=== PATIENT | male | born 1955 | race Caucasian/White ===

== ENCOUNTER 2016-05-21 16:08 | Emergency (ER) | payer SELFPAY ==
[~2016-05-21] VITALS: Wt 93.5 kg
== END 2016-05-21 19:38 | disposition left against medical advice (07) ==
LOC: FTE 16:08
DX: Z53.21 Procedure and treatment not carried out due to patient leaving prior to being seen by health care provider (principal)

== ENCOUNTER 2016-05-26 06:46 | Emergency (ER) | payer OTHER ==
[~2016-05-26] VITALS: Ht 177.8 cm; Wt 93.0 kg
[2016-05-26 06:49] VITALS: Ht 177.8 cm; Wt 93.0 kg
[2016-05-26 07:17] LABS: URINE BLOOD (Dip) POC Trace-intact (NEGATIVE)
--- NOTE | 2016-05-26 07:50 | ERD ---
ER Documentation Chief Complaint Date/Time DATE: 05/26/16 TIME: 07:41 Chief Complaint painful urination HPI This is a 61-year-old male who presents to emergency department today stating that he was sent to the emergency room by his primary care doctor for a circumcision as he has phimosis. Denies any fevers or chills or inability to urinate. ROS All systems reviewed and are negative except as per history of present illness. Allergies Allergies: Coded Allergies: No Known Allergy (Unverified , 05/26/16) PMhx/Soc Medical and Surgical Hx: pt denies Medical Hx, pt denies Surgical Hx History of Surgery: Yes (l. knee) Anesthesia Reaction: No Hx Neurological Disorder: No Hx Respiratory Disorders: No Hx Cardiac Disorders: No Hx Psychiatric Problems: No Hx Miscellaneous Medical Probl: No Hx Alcohol Use: No Hx Substance Use: No Hx Tobacco Use: No Smoking Status: Never smoker Physical Exam Vitals Vital Signs Date Time Temp Pulse Resp B/P Pulse Ox O2 Delivery O2 Flow Rate FiO2 05/26/16 06:49 98.2 80 19 144/67 80 Physical Exam Const: No acute distress Head: Atraumatic Eyes: Normal Conjunctiva ENT: Normal External Ears, Nose and Mouth. Neck: Full range of motion..~ No meningismus. Resp: Clear to auscultation bilaterally Cardio: Regular rate and rhythm, no murmurs Abd: Soft, non tender, non distended. Normal bowel sounds : Uncircumcised male. Able to see urethra. Testicles descended bilaterally Skin: No petechiae or rashes Neur: Awake and alert Psych: Normal Mood and Affect Results 24 hrs Laboratory Tests Test 05/26/16 07:18 Bedside Urine Blood Trace-intact Bedside Urine Glucose (UA) Negative Bedside Urine Ketones (LAB) Negative Bedside Urine Leukocyte Esterase (L Trace Bedside Urine Nitrite (LAB) Negative Bedside Urine Protein (LAB) Negative Bedside Urine pH (LAB) 5.5 Procedures/MDM This is 61-year-old male who presents to the emergency department today stating that he was sent here for a circumcision. Patient states he came over to go but there was too many people here so he left and was never seen. Patient states he has a patient of Dr. Judd has been trying to get into see Dr. Munson however that doctor does not take his medical insurance. Patient also indicated that he works during the day and is unable to make phone calls to call these doctors and by the time he gets off work everything is closed. Patient states "will just have to do my own circumcision". I spoke to Dr. French about the patient the decision was made to place a call to Dr. Judd. I was redirected to Dr. Judd's, son, Brian Judd. I discussed with the doctor the patient's concerns and that is instead he was told to come here to the emergency room and Dr. Masterson indicated that the patient was not sent here to the emergency room for circumcision and that if the patient did not have a medical emergency that we could "do whatever we want ". Patient is able to urinate here in the emergency department and his UA showed trace leukocyte Estrace. I will not treat the patient for urinary tract infection. Discussed the results to the patient. Patient stated that he was told to come here and he had address and that he was told to come here to this emergency room for the circumcision. I once again politely explained to the patient that this is not a surgical emergency at this time and he is able to urinate. I told the patient that I would give him a list of urology specialist so that he may call one of those specialists on his own to see if they take his insurance. Patient was discharged home with this information. At this time the patient is stable for discharge and outpatient management. Patient should follow up with their PCP in the next 1-2 days. They may return to the emergency department sooner for any persistent or worsening of symptoms. Patient understood and agreed with the plan. Discussed the case with Dr. French and he is in agreement with the plan. Departure Diagnosis: Primary Impression: Genital problem Condition: Fair Patient Instructions: Phimosis Referrals: ASHLY MUNSON MD,MELLO SANON,KERON NUNN,INOCENCIO THOMPSON,LELA ANDRADE,CECY DAVIS,NAVIN WILDER,ION NAJERA,CHERRIE DIALLO,BOBO QUEZADA,CARLOS ALBERTO OLMSTEAD,REBA SOUZA= JESSICA CONTEH Additional Instructions: Call your primary care doctor TOMORROW for an appointment during the next 1-2 days.See the doctor sooner or return here if your condition worsens before your appointment time. Call a urology specialist that is on the list that is provided and see if they take your insurance BROOKE SHAIKH PA-C May 26, 2016 07:50
== END 2016-05-26 07:47 | disposition home or self-care (01) ==
LOC: FTE 06:46
DX: N50.89 Other specified disorders of the male genital organs (principal)
CPT/HCPCS: 81003; Z7502; 99283